=== PATIENT | male | born 1970 | race Two or more races ===

== ENCOUNTER 2020-02-11 02:10 | Emergency (ER) | payer MEDICAID ==
[~2020-02-11] VITALS: Ht 172.7 cm; Wt 68.0 kg
[2020-02-11] MEDS ORDERED: METF-440 PO (02:26)
--- NOTE | 2020-02-11 02:30 | NUR ---
Dr. Wilson at bedside for MSE.
[2020-02-11] MEDS ORDERED: CHLORDIAZEPOXIDE HCL 25 MG CAPSULE PO ONE (02:45)
[2020-02-11 02:53] LABS: BASOPHILS % (AUTO) 0.3 % (0.0-2.0); EOSINOPHILS % (AUTO) 0.4 % (0.0-7.0); HEMATOCRIT 39.6 % (36.7-47.1); HEMOGLOBIN 13.3 g/dL (12.5-16.3); LYMPHOCYTES # (AUTO) 1.5 K/uL (20.0-40.0); LYMPHOCYTES % (AUTO) 26.1 % (20.5-51.5); MEAN CORPUSCULAR HEMOGLOBIN 31.3 uug (23.8-33.4); MEAN CORPUSCULAR HGB CONC 34 g/dL (32.5-36.3); MEAN CORPUSCULAR VOLUME 92.9 fL (73.0-96.2); MONOCYTES # (AUTO) 0.4 K/uL (2.0-10.0); MONOCYTES % (AUTO) 6.1 % (0.0-11.0); NEUTROPHILS % (AUTO) 67.1 % (38.5-71.5); PLATELET COUNT (AUTO) 169 K/uL (152-348); RED BLOOD CELL COUNT(AUTO) 4.26 MIL/uL (4.06-5.63); WHITE BLOOD COUNT (AUTO) 5.9 K/uL (3.6-10.2)
[2020-02-11] MEDS ORDERED: CHLORDIAZEPOXIDE HCL 25 MG CAPSULE ONE (02:53)
[2020-02-11 03:02] LABS: CREATININE 0.8 mg/dL (0.6-1.3); POTASSIUM 3.5 mmol/L (3.5-5.1)
[2020-02-11 03:08] LABS: BILIRUBIN,DIRECT 0.1 mg/dL (0.0-0.2); BILIRUBIN,TOTAL 0.3 mg/dL (0.2-1.0); TOTAL PROTEIN, SERUM 7.9 g/dL (6.4-8.2)
[2020-02-11 03:42] VITALS: BP 140/90
--- NOTE | 2020-02-11 03:42 | NUR ---
Pt denies being homeless at this time and states that he has a permanent residence. Patient discharged to home in stable condition. Written and verbal after care instructions given. Patient verbalizes understanding of instructions. Stressed follow up with PMD or return to ER for worsening s/s. Ambulated out of ER in steady gait.
== END 2020-02-11 03:43 | disposition home or self-care (01) ==
LOC: ER 02:12
DX: R25.1 Tremor, unspecified (principal); F41.9 Anxiety disorder, unspecified; Z59.0 Homelessness; F19.10 Other psychoactive substance abuse, uncomplicated; E11.9 Type 2 diabetes mellitus without complications; Z79.84 Long term (current) use of oral hypoglycemic drugs; F15.20 Other stimulant dependence, uncomplicated; Z88.8 Allergy status to other drugs, medicaments and biological substances; F17.200 Nicotine dependence, unspecified, uncomplicated
CPT/HCPCS: 36415; 83690; 85025; A4663

== ENCOUNTER 2020-02-12 21:14 | Emergency (ER) | payer MEDICAID ==
[~2020-02-12] VITALS: Ht 172.7 cm; Wt 68.0 kg
[~2020-02-12 21:14] MED LIST: METF-440 PO
--- NOTE | 2020-02-12 21:32 | NUR ---
at bedside for MSE
--- NOTE | 2020-02-12 21:42 | NUR ---
Accucheck 261, no new orders at this time
[2020-02-12] MEDS ORDERED: ONDANSETRON ODT 4 MG TAB.RAPDIS SL ONE (21:45)
[2020-02-12] MEDS ORDERED: METFORMIN HCL 500 MG TABLET PO ONE (21:45)
[2020-02-12] MEDS ORDERED: METFORMIN HCL 500 MG TABLET ONE (21:52)
[2020-02-12] MEDS ORDERED: ONDANSETRON ODT 4 MG TAB.RAPDIS ONE (21:52)
--- NOTE | 2020-02-12 21:58 | NUR ---
Patient given written and verbal discharge instructions. Patient verbalizes understanding of instructions. Patient is ambulatory with steady gait. Refuses offer of [facility] placement. Patient refused to signs homeless waiver form. took all belongings, noted ambulating in steady manner. Patient given list of available shelters in surrounding area.
[2020-02-12 22:04] VITALS: BP 120/79
== END 2020-02-12 22:00 | disposition home or self-care (01) ==
LOC: ER 21:18
DX: E11.65 Type 2 diabetes mellitus with hyperglycemia (principal); Z79.84 Long term (current) use of oral hypoglycemic drugs; Z59.0 Homelessness; F10.20 Alcohol dependence, uncomplicated; F15.20 Other stimulant dependence, uncomplicated
CPT/HCPCS: A4663; Q0162